=== PATIENT | female | born 1980 | race African-American/Black ===

== ENCOUNTER 2016-04-05 00:10 | Emergency (ER) | payer OTHER ==
[~2016-04-05] VITALS: Ht 162.6 cm; Wt 102.7 kg
[~2016-04-05 00:10] MED LIST: BENADRYL ALLERG25 MG PO; CIPRO500 MG PO; FLAGYL500 MG PO; NAPROSYN500 MG PO; PERCOCET 5/31 TABLET PO; PREDNISONE10 M1 PO; VENTOLIN HFA18 GM IH; ZOFRAN ODT4 MG PO
[2016-04-05] MEDS ORDERED: PREDNISONE10 MG PO (00:52)
[2016-04-05] MEDS ORDERED: BENADRYL50 MG PO (00:52)
[2016-04-05 01:06] VITALS: BP 128/99
== END 2016-04-05 01:07 | disposition home or self-care (01) ==
LOC: EME 00:10 → RME 00:10
DX: T78.40XA Allergy, unspecified, initial encounter (principal); L30.9 Dermatitis, unspecified; F17.200 Nicotine dependence, unspecified, uncomplicated
CPT/HCPCS: 99281; 99284; J7512